=== PATIENT | male | born 1945 | race African-American/Black ===

== ENCOUNTER → 2020-06-04 | Outpatient (CLI) | payer MEDICARE, MEDICAID ==
[~2020-06-04] MED LIST: DOCU-138 MT; HYDR-4001 MT; LEVO500T2 MT; MULT-1146 MT; OXYC30TA86 PO; TAMS-11 MT; TEMA30CA MT; TYLENOL #4 PO
== END | disposition home or self-care (01) ==
LOC: LAB 08:48
PROVIDERS: ATTEND Neurological Surgery
DX: Z01.818 Encounter for other preprocedural examination (principal); Z11.59 Encounter for screening for other viral diseases; S83.241A Other tear of medial meniscus, current injury, right knee, initial encounter; X58.XXXA Exposure to other specified factors, initial encounter; Y93.89 Activity, other specified; Y92.89 Other specified places as the place of occurrence of the external cause; Y99.8 Other external cause status
CPT/HCPCS: C9803; U0003

== ENCOUNTER 2020-06-06 06:13 | Inpatient (IN) | payer MEDICARE, MEDICAID ==
[~2020-06-06] VITALS: Ht 177.8 cm; Wt 102.1 kg
[~2020-06-06 06:13] MED LIST changes: -DOCU-138 MT; -HYDR-4001 MT; +LACTATED RINGERS 1,000 ML IV SCH; -LEVO500T2 MT; -MULT-1146 MT; -TAMS-11 MT; -TEMA30CA MT; -TYLENOL #4 PO
[2020-06-06] MEDS ORDERED: THROMBIN (BOVINE) 5000 UNITS/VIAL TOP ONE ×2 (06:22→06:23)
[2020-06-06] MEDS ORDERED: LIDOCAINE HCL/EPINEPHRINE 1%-EPI 1:100,000 20 ML VIAL ONE (06:23)
[2020-06-06] MEDS ORDERED: BACITRACIN 50,000 UNITS/VIAL ONE (06:23)
[2020-06-06] MEDS ORDERED: NORMAL SALINE 0.9% 10 ML SYR ONE (06:23)
[2020-06-06 06:48] LABS: EOSINOPHILS % 2.8 % (0.0-5.0); HEMATOCRIT. 45.8 % (42.0-52.0); HEMOGLOBIN. 15.3 g/dL (14.0-18.0); LYMPHOCYTES % 37.4 % (20.0-50.0); MEAN CORPUSCULAR HEMOGLOBIN 31.2 pg (28.0-32.0); MEAN CORPUSCULAR VOLUME 93.1 fL (80.0-94.0); MEAN PLATELET VOLUME 8.9 fl (7.4-10.4); MONOCYTES % 10.4 % (2.0-8.0); NEUTROPHILS % 48.4 % (40.0-76.0); PLATELET 114 x1000/uL (130-400); RED BLOOD CELL COUNT 4.92 mill/uL (4.7-6.1); RED CELL DISTRIBUTION WIDTH 14.2 % (11.6-14.6)
[2020-06-06 06:49] LABS: CLARITY URINE CLEAR (CLEAR); COLOR URINE YELLOW (YELLOW); KETONES URINE NEGATIVE (NEGATIVE); LEUKOCYTE ESTERASE URINE NEGATIVE (NEGATIVE); NITRITE URINE NEGATIVE (NEGATIVE); OCCULT BLOOD URINE NEGATIVE (NEGATIVE); PROTEIN URINE NEGATIVE (NEGATIVE); SPECIFIC GRAVITY URINE 1.021 (1.005-1.030)
[2020-06-06 06:58] LABS: INR 1.1; PARTIAL THROMBOPLASTIN TIME 30.8 sec (23.4-31.0); PROTHROMBIN TIME 11.1 sec (9.6-11.0)
[2020-06-06 06:59] LABS: CHLORIDE 109 mEq/L (98-107)
[2020-06-06] MEDS ORDERED: ROCURONIUM BROMIDE 10MG/ML VIAL 5ML IV ONE ×2 (07:15→08:38)
[2020-06-06] MEDS ORDERED: FENTANYL CITRATE/PF 50MCG/ML 2ML VIAL ONE (07:15)
[2020-06-06] MEDS ORDERED: NEOSTIGMINE METHYLSULFATE 1MG/ML 10 ML VIAL ONE (07:15)
[2020-06-06] MEDS ORDERED: PROPOFOL 200MG/20ML VIAL IV ONE (07:16)
[2020-06-06] MEDS ORDERED: GLYCOPYRROLATE 0.2 MG/ML 2ML VIAL ONE ×2 (07:16→09:48)
[2020-06-06] MEDS ORDERED: MIDAZOLAM HCL 2 MG/2 ML VIAL ONE (07:16)
[2020-06-06] MEDS ORDERED: HYDRALAZINE 20MG/ML VIAL IV PRN (07:45)
[2020-06-06] MEDS ORDERED: ONDANSETRON HCL 4MG/2ML INJ ONE (08:30)
[2020-06-06] MEDS ORDERED: DEXAMETHASONE 4MG/ML 1ML VIAL ONE (08:30)
[2020-06-06] MEDS ORDERED: HYDROMORPHONE HCL/PF 2MG/ML (OR) ONE (08:32)
[2020-06-06] MEDS ORDERED: TYLENOL #4 PO (08:33)
[2020-06-06] MEDS ORDERED: ONDANSETRON HCL 4MG/2ML INJ IV PRN (09:00)
[2020-06-06] MEDS ORDERED: LABETALOL 5MG/ML SYR 20 MG/4 ML SYRINGE IV PRN (09:00)
[2020-06-06] MEDS: HYDROMORPHONE HCL/PF 2MG/ML CPJ IV PRN ×5 (10:53→12:31)
[2020-06-06] MEDS: MEPERIDINE HCL/PF 25MG/ML CPJ IV PRN ×3 (11:19→11:56)
[2020-06-06] MEDS ORDERED: ONDANSETRON INJ IV PRN (13:00)
[2020-06-06] MEDS ORDERED: HYDROMORPHONE PCA 10MG/50ML IV PRN (13:00)
[2020-06-06] MEDS ORDERED: NALOXONE INJ IV PRN (13:00)
[2020-06-06 13:40] VITALS: BP 108/64
[2020-06-06] MEDS ORDERED: CEFAZOLIN SODIUM 1000MG/VIAL IV SCH (14:00)
[2020-06-06 14:29] VITALS: BP 108/64
[2020-06-06] MEDS ORDERED: MULT-1146 MT (15:03)
[2020-06-06] MEDS ORDERED: TEMA30CA MT (15:03)
[2020-06-06 16:00] VITALS: BP 114/57
[2020-06-06] MEDS: CEFAZOLIN 1000MG PREMIX 50 ML IV SCH ×2 (16:58→22:44)
[2020-06-06] MEDS: DEXT 5%/LACTATED RINGERS 1,000 ML IV SCH (18:25)
[2020-06-06 20:00] VITALS: BP 124/68
[2020-06-07] VITALS: BP 111/65
[2020-06-07 04:00] VITALS: BP 119/64
[2020-06-07] MEDS: DEXT 5%/LACTATED RINGERS 1,000 ML IV SCH ×2 (05:34→15:00)
[2020-06-07] MEDS: CEFAZOLIN 1000MG PREMIX 50 ML IV SCH ×3 (05:34→23:16)
[2020-06-07 08:00] VITALS: BP 105/61
[2020-06-07] MEDS: HYDROCODONE/ACETAMINOPHEN 5/325MG TABLET PO PRN ×4 (09:32→23:26)
[2020-06-07 12:00] VITALS: BP 128/56
[2020-06-07] MEDS ORDERED: HYDRALAZINE 5 MG in SODIUM CHLORIDE 0.9% 49.75 ML IV PRN (15:30)
[2020-06-07 16:00] VITALS: BP 118/67
[2020-06-07 20:00] VITALS: BP 136/82
[2020-06-08] VITALS: BP 126/74
[2020-06-08] MEDS: DEXT 5%/LACTATED RINGERS 1,000 ML IV SCH ×3 (00:36→22:59)
[2020-06-08] MEDS: HYDROCODONE/ACETAMINOPHEN 5/325MG TABLET PO PRN ×4 (04:05→21:00)
[2020-06-08 08:00] VITALS: BP 128/80
[2020-06-08] MEDS ORDERED: MORPHINE SULFATE 4 MG/ML CPJ (NOT FOR IM USE) IV NR (08:00)
[2020-06-08] MEDS: MORPHINE SULFATE 4 MG/ML CPJ (NOT FOR IM USE) IV PRN ×2 (10:59→16:14)
[2020-06-08 12:00] VITALS: BP 144/84
[2020-06-08 16:00] VITALS: BP 141/75
[2020-06-08] MEDS: HYDROCODONE/APAP 7.5/325MG 1 TAB TABLET PO PRN ×2 (19:04→22:59)
[2020-06-08 20:00] VITALS: BP 125/78
[2020-06-09] VITALS: BP 145/82
[2020-06-09] MEDS: HYDROCODONE/ACETAMINOPHEN 5/325MG TABLET PO PRN ×6 (01:00→23:40)
[2020-06-09] MEDS: HYDROCODONE/APAP 7.5/325MG 1 TAB TABLET PO PRN ×5 (02:59→20:49)
[2020-06-09 04:00] VITALS: BP 135/82
[2020-06-09 08:00] VITALS: BP 108/71
[2020-06-09 09:00] LABS: HEMOGLOBIN. 12.8 g/dL (14.0-18.0); MEAN CORPUSCULAR HEMOGLOBIN 31.2 pg (28.0-32.0); MEAN CORPUSCULAR VOLUME 92.3 fL (80.0-94.0); MEAN PLATELET VOLUME 9.5 fl (7.4-10.4); PLATELET 102 x1000/uL (130-400); RED BLOOD CELL COUNT 4.11 mill/uL (4.7-6.1); RED CELL DISTRIBUTION WIDTH 13.6 % (11.6-14.6)
[2020-06-09 09:09] LABS: CHLORIDE 103 mEq/L (98-107)
[2020-06-09] MEDS: DEXT 5%/LACTATED RINGERS 1,000 ML IV SCH (09:09)
[2020-06-09 09:20] LABS: LDL CHOLESTEROL 84 mg/dL (5-100)
[2020-06-09 09:22] LABS: HDL CHOLESTEROL 39 mg/dL (40-59); T4 FREE 1.22 ng/dL (0.76-1.46)
[2020-06-09 12:00] VITALS: BP 114/70
[2020-06-09] MEDS: DEXAMETHASONE 4MG/ML 1ML VIAL IV SCH ×2 (12:19→17:48)
[2020-06-09] MEDS ORDERED: HYDR-4001 MT ×2 (12:40→12:41)
[2020-06-09] MEDS ORDERED: LACTULOSE 20G/30ML UDC PO SCH (12:45)
[2020-06-09] MEDS ORDERED: ACETAMINOPHEN 325MG TABLET PO PRN (13:25)
[2020-06-09 16:00] VITALS: BP 147/75
[2020-06-09 20:00] VITALS: BP 138/93
[2020-06-09 22:31] LABS: PLATELET ESTIMATE DECREASED
[2020-06-10] VITALS: BP 128/79
[2020-06-10] MEDS: DEXAMETHASONE 4MG/ML 1ML VIAL IV SCH ×3 (00:11→11:51)
[2020-06-10] MEDS: HYDROCODONE/APAP 7.5/325MG 1 TAB TABLET PO PRN ×5 (02:50→20:57)
[2020-06-10 04:00] VITALS: BP 151/85
[2020-06-10 08:00] VITALS: BP 147/88
[2020-06-10] MEDS: DEXT 5%/LACTATED RINGERS 1,000 ML IV SCH ×2 (09:27→12:47)
[2020-06-10] MEDS: TAMSULOSIN HCL 0.4MG SR CAPSULE PO SCH (12:46)
[2020-06-10] MEDS ORDERED: SORBITOL 70% SOLN 30ML PO SCH (13:45)
[2020-06-10] MEDS: HYDROCODONE/ACETAMINOPHEN 5/325MG TABLET PO PRN ×2 (18:23→22:00)
[2020-06-10 20:00] VITALS: BP 125/64
[2020-06-10 20:43] LABS: HEMATOCRIT. 40.8 % (42.0-52.0); HEMOGLOBIN. 13.8 g/dL (14.0-18.0); MEAN CORPUSCULAR HEMOGLOBIN 31.5 pg (28.0-32.0); MEAN CORPUSCULAR VOLUME 93.2 fL (80.0-94.0); MEAN PLATELET VOLUME 9.2 fl (7.4-10.4); PLATELET 145 x1000/uL (130-400); RED BLOOD CELL COUNT 4.38 mill/uL (4.7-6.1)
[2020-06-10 20:44] LABS: CHLORIDE 101 mEq/L (98-107)
[2020-06-10 21:02] LABS: PLATELET ESTIMATE NORMAL
[2020-06-10] MEDS: ONDANSETRON HCL 4MG/2ML INJ IV PRN (23:19)
[2020-06-11] VITALS: BP 131/87
[2020-06-11] MEDS: HYDROCODONE/APAP 7.5/325MG 1 TAB TABLET PO PRN ×4 (01:19→14:07)
[2020-06-11] MEDS: ONDANSETRON HCL 4MG/2ML INJ IV PRN (03:28)
[2020-06-11] MEDS: HYDROCODONE/ACETAMINOPHEN 5/325MG TABLET PO PRN (03:29)
[2020-06-11 04:00] VITALS: BP 119/67
[2020-06-11 08:00] VITALS: BP 142/75
[2020-06-11] MEDS: TAMSULOSIN HCL 0.4MG SR CAPSULE PO SCH (09:00)
[2020-06-11 10:28] LABS: CLARITY URINE CLOUDY (CLEAR); COLOR URINE DK YELLOW (YELLOW); KETONES URINE NEGATIVE (NEGATIVE); LEUKOCYTE ESTERASE URINE 1+ (NEGATIVE); NITRITE URINE NEGATIVE (NEGATIVE); OCCULT BLOOD URINE 3+ (NEGATIVE); PH URINE 7.5 (4.5-8.0); PROTEIN URINE 2+ (NEGATIVE); SPECIFIC GRAVITY URINE 1.022 (1.005-1.030)
[2020-06-11 12:00] VITALS: BP 143/81
[2020-06-11] MEDS ORDERED: LORAZEPAM 2MG/ML CPJ IV PRN (12:00)
[2020-06-11 12:25] LABS: BASOPHILS % 0.3 % (0.0-2.0); EOSINOPHILS % 0.2 % (0.0-5.0); HEMATOCRIT. 40.3 % (42.0-52.0); HEMOGLOBIN. 13.6 g/dL (14.0-18.0); LYMPHOCYTES % 8.4 % (20.0-50.0); MEAN CORPUSCULAR HEMOGLOBIN 31.5 pg (28.0-32.0); MEAN CORPUSCULAR VOLUME 93.3 fL (80.0-94.0); MEAN PLATELET VOLUME 9.1 fl (7.4-10.4); MONOCYTES % 10.1 % (2.0-8.0); PLATELET 150 x1000/uL (130-400); RED BLOOD CELL COUNT 4.33 mill/uL (4.7-6.1); RED CELL DISTRIBUTION WIDTH 14.2 % (11.6-14.6)
[2020-06-11 12:57] LABS: CHLORIDE 99 mEq/L (98-107)
[2020-06-11] MEDS ORDERED: LEVOFLOXACIN 500MG PREMIX 100 ML IV NR (13:00)
[2020-06-11 16:00] VITALS: BP 140/86
[2020-06-11] MEDS ORDERED: HYDRALAZINE 10 MG in SODIUM CHLORIDE 0.9% 49.5 ML IV PRN (16:30)
[2020-06-11] MEDS: DEXT 5%/0.9% NACL 1,000 ML IV SCH (17:37)
[2020-06-11] MEDS: MORPHINE SULFATE 2 MG/ML CPJ (NOT FOR IM USE) IV PRN (17:53)
[2020-06-11 20:00] VITALS: BP 131/86
[2020-06-12] VITALS: BP 146/94
[2020-06-12] MEDS: MORPHINE SULFATE 2 MG/ML CPJ (NOT FOR IM USE) IV PRN ×2 (00:30→09:32)
[2020-06-12 04:00] VITALS: BP 152/84
[2020-06-12] MEDS: DEXT 5%/0.9% NACL 1,000 ML IV SCH ×2 (04:19→13:46)
[2020-06-12 07:01] LABS: BASOPHILS % 0.1 % (0.0-2.0); EOSINOPHILS % 0.5 % (0.0-5.0); HEMATOCRIT. 39.8 % (42.0-52.0); HEMOGLOBIN. 13.4 g/dL (14.0-18.0); LYMPHOCYTES % 10.4 % (20.0-50.0); MEAN CORPUSCULAR HEMOGLOBIN 31.5 pg (28.0-32.0); MEAN CORPUSCULAR VOLUME 93.3 fL (80.0-94.0); MEAN PLATELET VOLUME 8.9 fl (7.4-10.4); MONOCYTES % 13.4 % (2.0-8.0); NEUTROPHILS % 75.6 % (40.0-76.0); PLATELET 177 x1000/uL (130-400); RED BLOOD CELL COUNT 4.26 mill/uL (4.7-6.1); RED CELL DISTRIBUTION WIDTH 13.7 % (11.6-14.6)
[2020-06-12 07:17] LABS: CHLORIDE 101 mEq/L (98-107)
[2020-06-12 08:00] VITALS: BP 152/89
[2020-06-12] MEDS: TAMSULOSIN HCL 0.4MG SR CAPSULE PO SCH (08:46)
[2020-06-12] MEDS ORDERED: NA PHOS,M-B/NA PHOS,DI-BA ENEMA 118ML PR NR (11:15)
[2020-06-12 12:00] VITALS: BP 151/87
[2020-06-12] MEDS ORDERED: OXYCODONE HCL/ACETAMINOPHEN 5/325MG TABLET PO PRN (13:30)
[2020-06-12] MEDS: LEVOFLOXACIN 250MG PREMIX 50 ML IV SCH (13:47)
[2020-06-12] MEDS ORDERED: BISACODYL 10MG SUPP PR PRN (15:15)
[2020-06-12 16:00] VITALS: BP 133/76
[2020-06-12 20:00] VITALS: BP 151/89
[2020-06-12] MEDS: HYDROCODONE/APAP 7.5/325MG 1 TAB TABLET PO PRN (22:34)
[2020-06-13] VITALS: BP 128/74
[2020-06-13 04:00] VITALS: BP 125/62
[2020-06-13] MEDS: HYDROCODONE/APAP 7.5/325MG 1 TAB TABLET PO PRN ×2 (04:34→10:37)
[2020-06-13] MEDS: DEXT 5%/0.9% NACL 1,000 ML IV SCH ×2 (05:37→18:30)
[2020-06-13 08:33] LABS: HEMATOCRIT 39.8 % (42.0-52.0); HEMOGLOBIN 13.6 g/dL (14.0-18.0); MEAN CORPUSCULAR HEMOGLOBIN 31.5 pg (28.0-32.0); MEAN CORPUSCULAR VOLUME 91.8 fL (80.0-94.0); PLATELET 197 x1000/uL (130-400); RED BLOOD CELL COUNT 4.34 mill/uL (4.7-6.1); RED CELL DISTRIBUTION WIDTH 13.4 % (11.6-14.6)
[2020-06-13 08:45] LABS: CHLORIDE 99 mEq/L (98-107)
[2020-06-13] MEDS: TAMSULOSIN HCL 0.4MG SR CAPSULE PO SCH (09:34)
[2020-06-13] MEDS: LEVOFLOXACIN 250MG PREMIX 50 ML IV SCH (10:37)
[2020-06-13] MEDS ORDERED: POTASSIUM CHLORIDE 20MEQ TABLET SR PO NR (11:34)
[2020-06-13 12:00] VITALS: BP 129/87
[2020-06-13] MEDS ORDERED: LEVO500T2 MT (14:33)
[2020-06-13] MEDS ORDERED: METOCLOPRAMIDE HCL 10MG/2ML VIAL IV NR (15:00)
[2020-06-13 16:00] VITALS: BP 129/87
[2020-06-13 16:08] VITALS: BP 136/77
[2020-06-13] MEDS ORDERED: TAMS-11 MT (16:50)
[2020-06-13] MEDS ORDERED: DOCU-138 MT (16:59)
[2020-06-13 18:00] VITALS: BP 136/77
== END 2020-06-13 19:05 | disposition home or self-care (01) | DRG 519 ==
LOC: OR 06:13 → 6EST 06:14
PROVIDERS: ADMIT Internal Medicine; ATTEND Internal Medicine
PROC: 0SB20ZZ Excision of Lumbar Vertebral Disc, Open Approach (ICD-10-PCS; principal; 2020-06-06)
PROC: 01NB0ZZ Release Lumbar Nerve, Open Approach (ICD-10-PCS; 2020-06-06)
PROC: 4A11X4Z Monitoring of Peripheral Nervous Electrical Activity, External Approach (ICD-10-PCS; 2020-06-06)
DX: M51.16 Intervertebral disc disorders with radiculopathy, lumbar region (principal); K56.7 Ileus, unspecified; K56.600 Partial intestinal obstruction, unspecified as to cause; N39.0 Urinary tract infection, site not specified; E87.1 Hypo-osmolality and hyponatremia; M48.07 Spinal stenosis, lumbosacral region; E66.9 Obesity, unspecified; E86.0 Dehydration; I10 Essential (primary) hypertension; E80.6 Other disorders of bilirubin metabolism; N40.1 Benign prostatic hyperplasia with lower urinary tract symptoms; R33.8 Other retention of urine; Z68.32 Body mass index [BMI] 32.0-32.9, adult
CPT/HCPCS: 36415; 71045; 72100; 72148; 74018; 74176; 76000; 80048; 80053; 80061; 81003; 84153; 84439; 84443; 85025; 85027; 86850; 86900; 88305; 93005; 95925; 95926; 95928; 95929; 97116; 97162; 97530; J0690; J1100; J1170; J1956; J2060; J2175; J2250; J2270; J2405; J2704; J2710; J3010; J3490; J7042; J7121; G0103